=== PATIENT | female | born 1995 ===

== ENCOUNTER 2019-04-18 14:30 | Inpatient (IN) | payer OTHER ==
[~2019-04-18] VITALS: Ht 157.5 cm; Wt 90.7 kg
[2019-04-18] MEDS ORDERED: ASA81 MG PO (15:00)
[2019-04-18] MEDS ORDERED: PRENATABS RX T1 EACH PO (15:00)
[2019-05-08] MEDS ORDERED: DOCUSATE SODIU100 MG PO (10:51)
== END 2019-05-08 12:14 | disposition home or self-care (01) | DRG 768 ==
LOC: O/R 14:30 → LDR 05-06 08:56 → OB/GYN 05-06 23:39
PROVIDERS: ADMIT Obstetrics & Gynecology
PROC: 10E0XZZ Delivery of Products of Conception, External Approach (ICD-10-PCS; principal; 2019-05-06)
PROC: 0DQP0ZZ Repair Rectum, Open Approach (ICD-10-PCS; 2019-05-06)
PROC: 3E033VJ Introduction of Other Hormone into Peripheral Vein, Percutaneous Approach (ICD-10-PCS; 2019-05-06)
PROC: 4A1HXCZ Monitoring of Products of Conception, Cardiac Rate, External Approach (ICD-10-PCS; 2019-05-06)
DX: O70.3 Fourth degree perineal laceration during delivery (principal); Z37.0 Single live birth; Z3A.39 39 weeks gestation of pregnancy

== ENCOUNTER 2020-04-29 13:15 | Inpatient (IN) | payer OTHER ==
[~2020-04-29] VITALS: Ht 157.5 cm; Wt 3.6 kg
[~2020-04-29 13:15] MED LIST: ASA81 MG PO; DOCUSATE SODIU100 MG PO; PRENATABS RX T1 EACH PO
== END 2020-05-09 12:09 | disposition home or self-care (01) | DRG 785 ==
LOC: EDSTATUS 13:15 → O/R 05-06 05:49 → LDR 05-06 05:49 → OB/GYN 05-06 05:49 → O/R 05-06 10:58 → OB/GYN 05-06 13:15
PROVIDERS: ADMIT Obstetrics & Gynecology; ATTEND Obstetrics & Gynecology
PROC: 0UT70ZZ Resection of Bilateral Fallopian Tubes, Open Approach (ICD-10-PCS; 2020-05-06)
PROC: 4A0HXFZ Measurement of Products of Conception, Cardiac Rhythm, External Approach (ICD-10-PCS; 2020-05-06)
PROC: 10D00Z1 Extraction of Products of Conception, Low, Open Approach (ICD-10-PCS; principal; 2020-05-06 11:15)
DX: O82 Encounter for cesarean delivery without indication (principal); Z3A.39 39 weeks gestation of pregnancy; Z37.0 Single live birth; Z30.2 Encounter for sterilization